=== PATIENT | male | born 1995 | race Hispanic/Latino ===

== ENCOUNTER 2017-06-29 09:49 | Day surgery (SDC) | payer OTHER, SELFPAY ==
[2017-06-29] MEDS ORDERED: Ondansetron HCl/PF 4 MG/2 ML Vial ONE ×2 (10:02→13:34)
[2017-06-29] MEDS ORDERED: PROPOFOL 200 MG/20 ML VIAL ONE (10:02)
[2017-06-29] MEDS ORDERED: PHENYLEPHRINE-NS 100 MCG/ML 10 ML SYRINGE ONE (10:02)
[2017-06-29] MEDS ORDERED: Dexamethasone 20 MG/5 ML VIAL ONE (10:02)
[2017-06-29] MEDS ORDERED: Bupivacaine HCl 0.5%/Epinephrine 1:200,000/PF 30 ml Vial ONE (11:00)
[2017-06-29] MEDS ORDERED: Ropivacaine 0.5% HCl/PF (150 MG/30 ML VIAL) ONE (11:00)
[2017-06-29] MEDS ORDERED: Ropivacaine 0.2% HCl/PF (40 MG/20 ML VIAL) ONE (11:00)
[2017-06-29] MEDS ORDERED: Morphine 4 MG/ML VIAL ONE (11:15)
--- NOTE | 2017-06-29 11:27 | RAD ---
THREE VIEWS LEFT FOOT: DATE: 06/29/17. HISTORY: Trauma. Injury to left foot. FINDINGS: There is evidence of Lisfranc injury with displacement of the metatarsals of the left foot involving the 1st through 5th metatarsal, and the 1st through 5th metatarsals are displaced laterally with resp ect to the tarsal bones. There is mild widening of the airspace between the 2nd and 3rd metatarsals. There is a fracture involving the distal neck of the 2nd metatarsal. There is apex superior angula tion of the fracture. In addition, there also appears to be superior displacement of the base of the 2nd metatarsal superiorly. There are 2 small osseous fragments seen, 1 located between the base of the 2nd and 3rd metatarsals and the 2nd seen overlying the lateral aspect base of the 1st metatarsal. There are degenerative changes seen at the talonavicular joint. No other osseous abnormality. IMPRESSION: 1. Lisfranc injury with displacement of the 1st through 5th metatarsals laterally. There are fractu res involving the distal neck of the 2nd metatarsal as well as fractures of the base of the 2nd and 3 rd. There is also a tiny fracture fragment seen overlying the base of the 1st metatarsal. 2. Dorsal displacement of the base of the metatarsals. 3. Subcutaneous soft tissue swelling. 4. The above findings were discussed with Dr. Zhong in the emergency department on 06/29/17 at 1036 h ours. CODE CR POS: [facility]
--- NOTE | 2017-06-29 11:29 | CT ---
NONCONTRAST CT HEAD: DATE: 06/29/17. HISTORY: Altered mental status. COMPARISON: 08/20/12. FINDINGS: There is no evidence of a hemorrhage, acute infarction, mass effect, or midline shift. Cavum septum pellucidum is again present. Ventricular system is normal in size, shape, and position. There has b een no interval change compared to the prior exam. IMPRESSION: Stable CT scan of the head without evidence of an acute intracranial abnormality demonstrated. POS: [facility]
--- NOTE | 2017-06-29 11:36 | CT ---
CT OF LEFT FOOT PERFORMED WITHOUT CONTRAST ENHANCEMENT: History: Injury. Evaluation of fracture. FINDINGS: There is a homolateral lisfranc dislocation across the tarsal metatarsal joint space. The metatarsals are displaced laterally and anteriorly in relation to the carpal bones. There is plantar subluxation of the cuboid which is probably at least partially related to a perching type effect of the third an d fourth metatarsal bases on the dorsal side of the cuboid. There are small chip fractures of the bas es of second and third metatarsals. Also, a nondisplaced fracture through the plantar side of the lat eral cuneiform. A small bony avulsion is seen near the expected location of lisfranc ligament at the medial cuneiform. Also incidentally noted is a distal second metatarsal shaft fracture. The distal portion is markedly plantar angulated. The subtalar joint and ankle joint region appear unremarkable. No additional fractures. IMPRESSION: 1. Homolateral lisfranc fracture dislocation with metatarsals all displaced laterally and anteriorly. There is plantar subluxation of the cuboid. This is probably related to some perching effect of the bases of the metatarsals on the dorsal aspect of the cuboid with small chip fractures as discussed ab joanie and nondisplaced lateral cuneiform fracture. 2. Incidental note is made of a distal second metatarsal shaft fracture. POS: [facility]
[2017-06-29 12:10] LABS: #Basophils 0.1 thou/uL (0.0-0.2); #Lymphocytes 1.8 thou/uL (1.20-3.40); #Monocytes 0.6 thou/uL (0.11-0.59); #Neutrophils 6.4 thou/uL (1.40-6.50); %Basophils 0.9 % (0.0-1.0); %Eosinophils 0.3 % (0.0-10.0); %Lymphocytes 20.7 % (21.0-51.0); %Monocytes 6.5 % (0.0-10.0); %Neutrophils 71.6 % (42.0-75.0); Hemoglobin 15.1 g/dL (14.0-18.0); Mean Corpuscular HGB CONC 33.6 g/dL (32.0-36.0); Mean Corpuscular Hemoglobin 30.2 pg (27.0-31.0); Mean Corpuscular Volume 89.9 fl (80.0-94.0); Mean Platelet Volume 6.7 fL (7.4-10.4); Platelet Count 212 thou/uL (130-400); RBC Distribution Width 13.3 % (11.5-14.5); Red Blood Cell (RBC) Count 4.98 mill/uL (4.70-6.10); White Blood Cell (WBC) Count 8.9 thou/uL (4.8-10.8)
[2017-06-29 12:34] LABS: ALT (SGPT) 33 U/L (8-55); AST (SGOT) 34 U/L (5-34); Albumin 4.3 g/dL (3.5-5.0); Alkaline Phosphatase 52 U/L (40-150); Anion Gap 11 mmol/L (10-20); BUN (Urea Nitrogen) 10 mg/dL (8.9-20.6); Bilirubin, Total 0.3 mg/dL (0.2-1.2); Calc. Creatinine Clearance 0 mL/min (70-130); Calcium 9.1 mg/dL (7.8-10.44); Carbon Dioxide 22 mmol/L (22-29); Chloride 107 mmol/L (98-107); Estimated GFR-MDRD Greater than 90; Globulin 3.3 g/dL (2.4-3.5); Glucose 95 mg/dL (70-105); Potassium 4.3 mmol/L (3.5-5.1); Protein, Total 7.6 g/dL (6.0-8.3); Sodium 136 mmol/L (136-145)
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
--- NOTE | 2017-06-29 12:50 | RAD ---
RIGHT WRIST THREE VIEWS: History: Pain. Injury. Comparison: None. FINDINGS: There are fully threaded cortical screws through the proximal phalanx thumb metacarpal base. Mild deg enerative change of the thumb carpal metacarpal joint. No acute fracture or malalignment. IMPRESSION: No acute fracture or malalignment. POS: [facility]
[2017-06-29] MEDS ORDERED: Midazolam HCl 2 mg/2 ml Vial ONE (13:31)
[2017-06-29] MEDS ORDERED: Fentanyl 100 MCG/2 ML VIAL ONE ×2 (13:31→13:34)
[2017-06-29] MEDS ORDERED: Ropivacaine 0.2% 550 ML 550 ML NERVE BLCK SCH (14:12)
[2017-06-29] MEDS ORDERED: HYDROcodone/Acetaminophen 10/325 mg Tablet PO PRN ×2 (14:12)
[2017-06-29] MEDS ORDERED: Ketorolac Tromethamine 30 MG/ML VIAL IVP PRN (14:12)
[2017-06-29] MEDS ORDERED: Fentanyl 100 MCG/2 ML VIAL IV PRN (14:13)
[2017-06-29] MEDS ORDERED: Promethazine HCl 25 MG/ML VIAL IM PRN (14:13)
[2017-06-29] MEDS ORDERED: Ondansetron HCl/PF 4 MG/2 ML Vial IVP PRN (14:13)
[2017-06-29] MEDS ORDERED: Zolpidem Tartrate 5 MG TAB PO PRN (14:13)
[2017-06-29] MEDS ORDERED: Ketorolac Tromethamine 30 MG/ML VIAL ONE (15:52)
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
[2017-06-29] MEDS ORDERED: HYDROcodone/Acetaminophen 7.5/325 mg Tablet ONE (17:20)
--- NOTE | 2017-06-29 17:33 | RAD ---
TWO INTRAOPERATIVE FLUOROSCOPIC IMAGES OF THE LEFT FOOT: 06/29/17 HISTORY: ORIF left foot. COMPARISON: Plain film radiographs left foot obtained earlier today on 06/29/17. FINDINGS: There are at least four pins transfixing the metatarsals and tarsometatarsals noted on the provided i mages. There is a fracture involving the distal second metatarsal. Fractures at the base of the metat arsals are not well visualized on this exam. There does appear to be improvement in alignment at the Lisfranc joint when compared to the plain film evaluation. IMPRESSION: 1. Internal fixation of the previously noted Lisfranc fracture and dislocation. Correlation with intraoperative findings is recommended. 2. Fracture distal left second metatarsal. POS: [facility]
== END 2017-06-29 18:10 | disposition home or self-care (01) ==
LOC: ERS 09:49 → SDC 14:13
PROVIDERS: ATTEND Orthopaedic Surgery
PROC: 0QSM34Z Reposition Left Tarsal with Internal Fixation Device, Percutaneous Approach (ICD-10-PCS; principal; 2017-06-29)
DX: S92.202A Fracture of unspecified tarsal bone(s) of left foot, initial encounter for closed fracture (principal); G40.909 Epilepsy, unspecified, not intractable, without status epilepticus; Z79.899 Other long term (current) drug therapy; V49.40XA Driver injured in collision with unspecified motor vehicles in traffic accident, initial encounter
CPT/HCPCS: 29515; 36415; 70450; 76001; 80053; 80164; 85025; 96361; 96374; A4306; C1713; J0670; J1100; J1885; J2250; J2270; J2405; J2704; J2795; J3010

== ENCOUNTER 2017-12-08 18:04 | Emergency (ER) | payer OTHER, SELFPAY ==
[2017-12-08] MEDS ORDERED: levETIRAcetam 500 MG TAB PO SCH (18:45)
[2017-12-08 18:55] LABS: #Basophils 0.1 thou/uL (0.0-0.2); #Eosinphils 0.1 thou/uL (0.0-0.7); #Lymphocytes 2.2 thou/uL (1.20-3.40); #Monocytes 0.7 thou/uL (0.11-0.59); #Neutrophils 6.9 thou/uL (1.40-6.50); %Basophils 0.9 % (0.0-1.0); %Eosinophils 0.5 % (0.0-10.0); %Lymphocytes 22.1 % (21.0-51.0); %Monocytes 6.7 % (0.0-10.0); %Neutrophils 69.8 % (42.0-75.0); Hemoglobin 15.2 g/dL (14.0-18.0); Mean Corpuscular HGB CONC 34.4 g/dL (32.0-36.0); Mean Corpuscular Hemoglobin 30.6 pg (27.0-31.0); Mean Corpuscular Volume 89.2 fL (78.0-98.0); Mean Platelet Volume 7.2 fL (7.4-10.4); Platelet Count 240 thou/uL (130-400); RBC Distribution Width 12.8 % (11.5-14.5); Red Blood Cell (RBC) Count 4.97 mill/uL (4.70-6.10); White Blood Cell (WBC) Count 9.9 thou/uL (4.8-10.8)
[2017-12-08 19:14] LABS: ALT (SGPT) 34 U/L (8-55); AST (SGOT) 35 U/L (5-34); Albumin 5.2 g/dL (3.5-5.0); Alkaline Phosphatase 75 U/L (40-150); Anion Gap 15 mmol/L (10-20); BUN (Urea Nitrogen) 11 mg/dL (8.9-20.6); Bilirubin, Total 0.6 mg/dL (0.2-1.2); Calc. Creatinine Clearance 0 mL/min (70-130); Calcium 10.3 mg/dL (7.8-10.44); Carbon Dioxide 22 mmol/L (22-29); Chloride 103 mmol/L (98-107); Estimated GFR-MDRD Greater than 90; Globulin 3.7 g/dL (2.4-3.5); Glucose 89 mg/dL (70-105); Magnesium 2.8 mg/dL (1.6-2.6); Potassium 4.4 mmol/L (3.5-5.1); Protein, Total 8.9 g/dL (6.0-8.3); Sodium 136 mmol/L (136-145)
== END 2017-12-08 19:40 | disposition home or self-care (01) ==
LOC: ERS 18:04
DX: G40.909 Epilepsy, unspecified, not intractable, without status epilepticus (principal)
CPT/HCPCS: 36415; 80053; 83735; 85025; 99284